=== PATIENT | female | born 1985 | race Two or more races ===

== ENCOUNTER 2022-06-17 15:53 | Emergency (ER) | payer MEDICAID, OTHER ==
[~2022-06-17] VITALS: Ht 144.8 cm; Wt 64.0 kg
[2022-06-17] MEDS ORDERED: SILVER SULFADIAZINE 1 % TOPICAL CREAM 50GM TOP ONE (16:30)
[2022-06-17] MEDS ORDERED: IBUP800T26 PO (16:48)
[2022-06-17] MEDS ORDERED: HYDR-4902 PO (16:48)
[2022-06-17] MEDS ORDERED: SILV1CRE82 TOP (16:48)
[2022-06-17 22:00] VITALS: BP 134/82
[2022-06-17] MEDS ORDERED: TETANUS-DIPTH-ACEL PERTUSSIS 0.5ML SYR Tdap IM ONE (22:00)
== END 2022-06-17 22:02 | disposition home or self-care (01) ==
LOC: ER 15:53
DX: T23.131A Burn of first degree of multiple right fingers (nail), not including thumb, initial encounter (principal); T31.0 Burns involving less than 10% of body surface; X19.XXXA Contact with other heat and hot substances, initial encounter; Y93.89 Activity, other specified; Y92.89 Other specified places as the place of occurrence of the external cause; Y99.8 Other external cause status
CPT/HCPCS: 16020; 90471; 90715

== ENCOUNTER 2022-06-18 14:13 | Emergency (ER) | payer MEDICAID ==
[~2022-06-18 14:13] MED LIST: HYDR-4902 PO; IBUP800T26 PO; SILV1CRE82 TOP
== END 2022-06-18 15:18 | disposition left against medical advice (07) ==
LOC: ER 14:13
DX: T23.231D Burn of second degree of multiple right fingers (nail), not including thumb, subsequent encounter (principal); X08.8XXD Exposure to other specified smoke, fire and flames, subsequent encounter